=== PATIENT | male | born 1990 | race Caucasian/White ===

== ENCOUNTER 2017-08-05 10:16 | Day surgery (SDC) | payer BC ==
[~2017-08-05 10:16] MED LIST: Lactated Ringers 1,000 ML IV SCH; Sodium Chloride 0.9% 10 ML Syringe FLUSH PRN; Sodium Chloride 0.9% 2.5 ML Syringe FLUSH PRN; ceFAZolin 2 GM in Premix Bag 1 BAG IV ONE
[2017-08-05] MEDS ORDERED: Propofol 200 MG/20 ML SDV ONE (10:24)
[2017-08-05] MEDS ORDERED: fentaNYL 100 MCG/2 ML SDV ONE ×2 (10:24→13:58)
[2017-08-05] MEDS ORDERED: Midazolam 1 MG/ML 2 ML SDV ONE (10:24)
[2017-08-05] MEDS ORDERED: Lidocaine 2% 5 ML SDV ONE (10:26)
[2017-08-05] MEDS ORDERED: Glycopyrrolate 0.2 MG/ML SDV ONE (10:26)
[2017-08-05] MEDS ORDERED: Ondansetron 4 MG/2 ML SDV ONE (10:26)
[2017-08-05] MEDS ORDERED: Ketorolac 30 MG/ML SDV ONE (10:26)
--- NOTE | 2017-08-05 11:01 | PCM.PREANE ---
Preanesthetic Assessment - Anesthesia/Transfusion/Family Hx Anesthesia History: Prior Anesthesia Without Reaction Family History of Anesthesia Reaction: No Transfusion History: No Prior Transfusion(s) Intubation History: Unknown - Review of Systems General: No Symptoms Pulmonary: No Symptoms Cardiovascular: No Symptoms Gastrointestinal: No Symptoms Neurological: No Symptoms Other: Reports: None - Physical Assessment Height: 1.91 m Weight: 102.965 kg ASA Class: 2 Mental Status: Alert & Oriented x3 Airway Class: Mallampati = 2 Dentition: Reports: Normal Dentition Thyro-Mental Finger Breadths: 3 Mouth Opening Finger Breadths: 2 ROM/Head Extension: Full Lungs: Clear to Auscultation, Normal Respiratory Effort Cardiovascular: Regular Rate, Regular Rhythm - Allergies Allergies/Adverse Reactions: Allergies Allergy/AdvReac Type Severity Reaction Status Date / Time No Known Allergies Allergy Verified 08/04/17 08:36 - Blood Blood Available: No - Anesthesia Plan Pre-Op Medication Ordered: None - Acknowledgements Anesthesia Type Planned: General Anesthesia Pt an Appropriate Candidate for the Planned Anesthesia: Yes Alternatives and Risks of Anesthesia Discussed w Pt/Guardian: Yes Pt/Guardian Understands and Agrees with Anesthesia Plan: Yes PreAnesthesia Questionnaire HEENT History: Reports: None Musculoskeletal History: Reports: Back Pain, Chronic Oncologic (Cancer) History: Reports: 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 lip melanoma) - SUBSTANCE USE Smoking Status *Q: Never Smoker Tobacco Use Within Last Twelve Months: Snuff/Dip Recreational Drug Use History: No - HOME MEDS Home Medications: Home Meds . [No Known Home Meds] 08/04/17 [History] - CURRENT (IN HOUSE) MEDS Current Meds: Current Medications Lactated Ringer's (Ringers, Lactated) 1,000 mls @ 125 mls/hr IV ASDIRECTED CHANTAL Last Admin: 08/05/17 10:54 Dose: 125 mls/hr Sodium Chloride (Saline Flush) 10 ml FLUSH ASDIRECTED PRN PRN Reason: Keep Vein Open Sodium Chloride (Saline Flush) 2.5 ml FLUSH ASDIRECTED PRN PRN Reason: Keep Vein Open Discontinued Medications Fentanyl (Sublimaze) Confirm Administered Dose 100 mcg .ROUTE .STK-MED ONE Stop: 08/05/17 10:25 Glycopyrrolate (Robinul) Confirm Administered Dose 0.2 mg .ROUTE .STK-MED ONE Stop: 08/05/17 10:27 Cefazolin Sodium/Dextrose 2 gm (/ Premix) 50 mls @ 100 mls/hr IV ONETIME ONE Stop: 08/04/17 12:41 Ketorolac Tromethamine (Toradol) Confirm Administered Dose 30 mg .ROUTE .STK- MED ONE Stop: 08/05/17 10:27 Lidocaine (Xylocaine-Mpf 2%) Confirm Administered Dose 5 ml .ROUTE .STK-MED ONE Stop: 08/05/17 10:27 Midazolam HCl (Versed 1 Mg/Ml) Confirm Administered Dose 2 mg .ROUTE .STK-MED ONE Stop: 08/05/17 10:25 Ondansetron HCl (Zofran) Confirm Administered Dose 4 mg .ROUTE .STK-MED ONE Stop: 08/05/17 10:27 Propofol (Diprivan 20 Ml) Confirm Administered Dose 200 mg .ROUTE .STK-MED ONE Stop: 08/05/17 10:25
[2017-08-05] MEDS ORDERED: Bupivacaine 0.5% 10 ML SDV ONE (12:11)
[2017-08-05] MEDS ORDERED: ceFAZolin 1 GM Vial ONE ×2 (12:12→12:53)
[2017-08-05] MEDS ORDERED: Phenylephrine/Normal Saline 100 MCG/ML 10 ML Syringe ONE (12:39)
[2017-08-05] MEDS ORDERED: HYDROmorphone 2 MG/ML SDV IVPUSH PRN (13:55)
[2017-08-05] MEDS: fentaNYL 100 MCG/2 ML SDV IVPUSH PRN ×2 (14:00→14:05)
--- NOTE | 2017-08-05 14:19 | PCM.POSTAN ---
POST ANESTHESIA ASSESSMENT - MENTAL STATUS Mental Status: Alert, Oriented - RESPIRATORY Respiratory Status: Respiratory Rate WNL, Airway Patent, O2 Saturation Stable - CARDIOVASCULAR CV Status: Pulse Rate WNL, Blood Pressure Stable - GASTROINTESTINAL GI Status: No Symptoms - PAIN Pain Score: 3 - POST OP HYDRATION Hydration Status: Adequate & Stable - OBSERVATIONS Free Text/Narrative:: no anesthesia problems
--- NOTE | 2017-08-05 14:32 | PCM.OPNOTE ---
- General Post-Op/Procedure Note Date of Surgery/Procedure: 08/05/17 Operative Procedure(s): Left inguinal hernia repair Findings: Direct left inguinal hernia Pre Op Diagnosis: Direct left inguinal hernia Post-Op Diagnosis: same Anesthesia Technique: General LMA Primary Surgeon: Louise Fam Fluid Replacement, Intraop: 900 EBL in mLs: 20 Condition: Good Free Text/Narrative:: Intake & Output 08/04/17 08/05/17 08/05/17 22:59 06:59 14:59 Intake Total 1100 Balance 1100
--- NOTE | 2017-08-05 14:45 | PCM48HPAN ---
Post Anesthesia Note - EVALUATION WITHIN 48HRS OF ANESTHETIC Vital Signs in Normal Range: Yes Patient Participated in Evaluation: Yes Respiratory Function Stable: Yes Airway Patent: Yes Cardiovascular Function Stable: Yes Hydration Status Stable: Yes Pain Control Satisfactory: Yes Nausea and Vomiting Control Satisfactory: Yes Mental Status Recovered: Yes Resp Rate: 9
[2017-08-05] MEDS ORDERED: Acetaminophen/oxyCODONE 325-5 MG Tab PO ONE (15:08)
--- NOTE | 2017-08-05 18:16 | OR ---
SURGEON: ALHAJI PARK MD DATE OF PROCEDURE: 08/05/2017 PREOPERATIVE DIAGNOSIS: Left inguinal hernia. POSTOPERATIVE DIAGNOSIS: Left direct inguinal hernia. PROCEDURE PERFORMED: Left inguinal herniorrhaphy. ANESTHESIA: General LMA. FLUIDS: 900 mL of crystalloid. ESTIMATED BLOOD LOSS: 20 mL. FINDINGS: Left direct inguinal hernia. COMPLICATIONS: None. INDICATIONS: The patient is a 27-year-old male, who presented to clinic with a left groin bulge. On physical exam, a hernia was felt in the left groin. CT had been performed by his primary care physician that indicated the patient had a small left direct inguinal hernia. The patient and I discussed the laparoscopic and open approaches. The patient opted for an open approach. We discussed the procedure as well as expected perioperative course. We discussed the risks including bleeding, infection, or damage to surrounding structures. The patient verbalized understanding and wishes to proceed. PROCEDURE IN DETAIL: The patient was brought into the operating room and placed on the OR table in supine position. A time-out was completed verifying the patient's name, age, date of , allergies, and procedure to be performed. General LMA anesthesia was induced. The lower abdomen, groin, and genitalia were prepped and draped in normal sterile fashion. The left inguinal ligament was identified from the pubic tubercle to the ASIS. The skin was anesthetized with 0.5% Marcaine plain. Two fingerbreadths above the pubic tubercle, a transverse incision was made using a 15 blade scalpel. Dissection was then carried down with cautery through Franklin's fascia maintaining hemostasis. A large subcutaneous vein was noted. This was tied off with 0 Vicryl suture and incised sharply. Dissection was further carried down to the external oblique. The external oblique was incised along at the length of its fibers with a 15 blade scalpel. Metzenbaum scissors were then used to extend the incision in both directions opening up the external oblique down to the external ring. Next, the external oblique was grasped with hemostats on both sides. The cord and cord structures were then freed up circumferentially along the pubic tubercle, and a [place] drain was placed around it. The patient was noted to have a direct inguinal hernia sac along the floor of the inguinal canal. I carefully dissected along the cord structures and did not notice any indirect inguinal hernia. The direct hernia sac was easily reduced back into the abdomen. Attention was then made to placing a Prolene mesh to cover the floor. The mesh was sutured to the pubic tubercle medially along the ilioinguinal ligament inferiorly and along the conjoint tendon superiorly using interrupted 0 Ethibond sutures. The tails of the mesh were placed around the cord and cord structures. The tails of the mesh were secured to each other with just enough room to accept the tip of my finger and allow no strangulation of the cord and cord contents. The area was then irrigated and hemostasis ensured. The external oblique was then closed over the roof with a running 3-0 Vicryl suture taking care not to strangulate the cord and to recreate the external ring. The Franklin's fascia was then approximated with a running 3-0 Vicryl suture. The subcutaneous fat was then closed with interrupted 3-0 Vicryl sutures. The skin was closed with a running subcuticular 4-0 Monocryl suture. Steri-Strips and sterile dressings were applied. The patient tolerated the procedure well and was taken to PACU in stable condition. NORRIS GUSTAFSON /[id number]
== END 2017-08-05 15:15 | disposition home or self-care (01) ==
LOC: MW.SDS 10:16
PROVIDERS: ATTEND Surgery
DX: K40.90 Unilateral inguinal hernia, without obstruction or gangrene, not specified as recurrent (principal); F17.210 Nicotine dependence, cigarettes, uncomplicated; Z90.89 Acquired absence of other organs
CPT/HCPCS: 49505; A9270; C1781; J0690; J1885; J2250; J2405; J3010; J7120; J2704

== ENCOUNTER 2018-01-12 23:14 | Emergency (ER) | payer BC ==
--- NOTE | 2018-01-12 23:44 | EDM.PDOC ---
ED HPI GENERAL MEDICAL PROBLEM - General Chief Complaint: Behavioral/Psych Stated Complaint: MENTAL HEALTH Time Seen by Provider: 01/12/18 23:35 - History of Present Illness INITIAL COMMENTS - FREE TEXT/NARRATIVE: HISTORY AND PHYSICAL: History of present illness: Patient 27-year-old white male with history of post traumatic stress disorder who presents tonight in custody of law enforcement after he threatened suicide to his girlfriend on arrival here patient's awake polite cooperative he states he has been depressed and did have a plan to shoot himself. Review of systems: As per history of present illness and below otherwise all systems reviewed and negative. Past medical history: As per history of present illness and as reviewed below otherwise noncontributory. Surgical history: As per history of present illness and as reviewed below otherwise noncontributory. Social history: No reported history of drug or alcohol abuse. Family history: As per history of present illness and as reviewed below otherwise noncontributory. Physical exam: HEENT: Atraumatic, normocephalic, pupils reactive, negative for conjunctival pallor or scleral icterus, mucous membranes moist, throat clear, neck supple, nontender, trachea midline. Lungs: Clear to auscultation, breath sounds equal bilaterally, chest nontender. Heart: S1S2, regular, negative for clicks, rubs, or JVD. Abdomen: Soft, nondistended, nontender. Negative for masses or hepatosplenomegaly. Negative for costovertebral tenderness. Pelvis: Stable nontender. Genitourinary: Deferred. Rectal: Deferred. Extremities: Atraumatic, negative for cords or calf pain. Neurovascular unremarkable. Neuro: Awake, alert, oriented. Cranial nerves II through XII unremarkable. Cerebellum unremarkable. Motor and sensory unremarkable throughout. Exam nonfocal. Diagnostics: Psychiatric panel Therapeutics: None Impression: #1 depressive episode with suicidal ideation #2 history of posttraumatic stress disorder Definitive disposition and diagnosis as appropriate pending reevaluation and review of above. - Related Data Allergies Allergy/AdvReac Type Severity Reaction Status Date / Time No Known Allergies Allergy Verified 01/12/18 23:32 Home Meds: Home Meds . [No Known Home Meds] 08/04/17 [History] Past Medical History HEENT History: Reports: None Musculoskeletal History: Reports: Back Pain, Chronic Hematologic History: Reports: None Oncologic (Cancer) History: Reports: Malignant Melanoma - Infectious Disease History Infectious Disease History: Reports: None - Past Surgical History Head Surgeries/Procedures: Reports: None HEENT Surgical History: Reports: Tonsillectomy GI Surgical History: Reports: Hernia, Inguinal Dermatological Surgical History: Reports: Other (See Below) Social & Family History - Caffeine Use Caffeine Use: Reports: None - Alcohol Use Days Per Week of Alcohol Use: 3 Number of Drinks Per Day: 4 Total Drinks Per Week: 12 - Recreational Drug Use Recreational Drug Use: No ED ROS GENERAL - Review of Systems Review Of Systems: ROS reveals no pertinent complaints other than HPI. ED EXAM, GENERAL - Physical Exam Exam: See Below (See dictation) Course - Vital Signs Last Recorded V/S: Last Vital Signs Temp 36.2 C 01/12/18 23:29 Pulse 90 01/12/18 23:29 Resp 18 01/12/18 23:29 BP 137/98 H 01/12/18 23:29 Pulse Ox 92 L 01/12/18 23:29 - Orders/Labs/Meds Orders: Active Orders 24 hr Category Date Time Status EKG 12 Lead [EKG Documentation Completion] [RC] STAT Care 01/12/18 23:31 Active ACETAMINOPHEN [CHEM] Stat Lab 01/12/18 23:31 Ordered CBC WITH AUTO DIFF [HEME] Stat Lab 01/12/18 23:31 Ordered COMPREHENSIVE METABOLIC PN,CMP [CHEM] Stat Lab 01/12/18 23:31 Ordered DRUG SCREEN, URINE [URCHEM] Stat Lab 01/12/18 23:31 Ordered ETHANOL BLOOD MEDICAL [CHEM] Stat Lab 01/12/18 23:31 Ordered SALICYLATE [CHEM] Stat Lab 01/12/18 23:31 Ordered TSH [CHEM] Stat Lab 01/12/18 23:31 Ordered UA W/MICROSCOPIC [URIN] Stat Lab 01/12/18 23:31 Ordered Departure - Departure Time of Disposition: 23:44 Disposition: DC/Tfer to Psych Hosp/Unit 65 Condition: Good Clinical Impression: Depressive disorder - Discharge Information *PRESCRIPTION DRUG MONITORING PROGRAM REVIEWED*: Not Applicable *COPY OF PRESCRIPTION DRUG MONITORING REPORT IN PATIENT GEE: Not Applicable Referrals: PCP,None [Primary Care Provider] - - My Orders Last 24 Hours: My Active Orders 01/12/18 23:31 EKG 12 Lead [EKG Documentation Completion] [RC] STAT ACETAMINOPHEN [CHEM] Stat CBC WITH AUTO DIFF [HEME] Stat COMPREHENSIVE METABOLIC PN,CMP [CHEM] Stat DRUG SCREEN, URINE [URCHEM] Stat ETHANOL BLOOD MEDICAL [CHEM] Stat SALICYLATE [CHEM] Stat TSH [CHEM] Stat UA W/MICROSCOPIC [URIN] Stat - Assessment/Plan Last 24 Hours: My Active Orders 01/12/18 23:31 EKG 12 Lead [EKG Documentation Completion] [RC] STAT ACETAMINOPHEN [CHEM] Stat CBC WITH AUTO DIFF [HEME] Stat COMPREHENSIVE METABOLIC PN,CMP [CHEM] Stat DRUG SCREEN, URINE [URCHEM] Stat ETHANOL BLOOD MEDICAL [CHEM] Stat SALICYLATE [CHEM] Stat TSH [CHEM] Stat UA W/MICROSCOPIC [URIN] Stat
[2018-01-13] MEDS ORDERED: Haloperidol Lactate 5 MG/ML SDV IM ONE (00:21)
[2018-01-13] MEDS ORDERED: diphenhydrAMINE 50 MG/ML SDV IM ONE (00:25)
[2018-01-13 00:51] LABS: CHLORIDE,CL 107 mmol/L (98-107); SODIUM,NA 143 mmol/L (136-148)
[2018-01-13 00:52] LABS: ACETAMINOPHEN < 2.0 ug/mL
== END 2018-01-13 08:50 ==
LOC: MW.ED 23:14
DX: F32.9 Major depressive disorder, single episode, unspecified (principal); R45.851 Suicidal ideations
CPT/HCPCS: 36415; 80053; 80305; 81001; 84443; 85025; 93005; 96372; 99285; G0480; J1200; J1630

== ENCOUNTER 2021-03-06 18:23 | Emergency (ER) | payer SELFPAY ==
[2021-03-06] MEDS ORDERED: Sodium Chloride 0.9% 2.5 ML Syringe FLUSH PRN (20:03)
[2021-03-06] MEDS ORDERED: Sodium Chloride 0.9% 10 ML Syringe FLUSH PRN (20:03)
[2021-03-06] MEDS ORDERED: Lactated Ringers 1,000 ML IV ONE (20:03)
[2021-03-06] MEDS ORDERED: Ondansetron 4 MG/2 ML SDV IVPUSH ONE (20:03)
--- NOTE | 2021-03-06 20:11 | EDM.PDOC ---
ED HPI GENERAL MEDICAL PROBLEM - General Chief Complaint: General Stated Complaint: FLU SYMPTOMS Time Seen by Provider: 03/06/21 19:57 Source of Information: Reports: Patient History Limitations: Reports: No Limitations - History of Present Illness INITIAL COMMENTS - FREE TEXT/NARRATIVE: 30 yo M presents with nausea, vomiting and diarrhea. He has had subjective fevers and chills, cough and malaise and decreased appetite over the past 10 days, then started vomiting today with 4 episodes of nonbilious vomiting. He also had 4 days of watery diarrhea, averaging about 3 times per day. He notes mild diffuse abdominal cramping sensation. He was not vaccinated against Covid. He has been taking NyQuil with no relief. ROS: A 10-point review of systems, other than pertinent positives and negatives as stated per HPI, is otherwise negative Past medical history: No additional pertinent history Past Surgical history: No additional pertinent history Social history: No additional pertinent history Family history: No additional pertinent history PHYSICAL EXAM General: AOx4, GCS = 15, No distress HEENT: dry mucous membrane Neck: supple, no meningismus, no Kernig or Brudzinski Cardiac: S1S2 RRR Respiratory: CTAB, no crackles or rales, no wheezing Abdomen: Soft, nontender, no rebound or guarding, nondistended, no pulsatile mass. Back: nontender Musculoskeletal: NVI distally, no deformity Neuro: No focal deficits, CN 2 - 12 WNL. - Related Data Allergies Allergy/AdvReac Type Severity Reaction Status Date / Time No Known Allergies Allergy Verified 03/06/21 19:19 Home Meds: Home Meds Ondansetron [Zofran ODT] 4 mg PO Q6H PRN #12 tab.dis 03/06/21 [Rx] Past Medical History HEENT History: Reports: None Musculoskeletal History: Reports: Back Pain, Chronic Hematologic History: Reports: None Oncologic (Cancer) History: Reports: Malignant Melanoma - Infectious Disease History Infectious Disease History: Reports: None - Past Surgical History Head Surgeries/Procedures: Reports: None HEENT Surgical History: Reports: Tonsillectomy GI Surgical History: Reports: Hernia, Inguinal Dermatological Surgical History: Reports: Other (See Below) Social & Family History - Caffeine Use Caffeine Use: Reports: None - Recreational Drug Use Recreational Drug Use: No ED ROS GENERAL - Review of Systems Review Of Systems: See Below (see dictation) ED EXAM, GENERAL - Physical Exam Exam: See Below (see dictation) Course - Vital Signs Last Recorded V/S: Last Vital Signs Temp 97.2 F 03/06/21 19:19 Pulse 86 03/06/21 20:15 Resp 18 03/06/21 20:15 BP 115/70 03/06/21 20:15 Pulse Ox 94 L 03/06/21 20:15 - Orders/Labs/Meds Orders: Active Orders 24 hr Category Date Time Status COVID-19/FLU A+B [MOLEC] Stat Lab 03/06/21 20:06 Received Lactated Ringers [Ringers, Lactated] 1,000 ml Med 03/06/21 20:03 Active IV .BOLUS Sodium Chloride 0.9% [Saline Flush] Med 03/06/21 20:03 Active 10 ml FLUSH ASDIRECTED PRN Sodium Chloride 0.9% [Saline Flush] Med 03/06/21 20:03 Active 2.5 ml FLUSH ASDIRECTED PRN Saline Lock Insert [OM.PC] Stat Oth 03/06/21 20:04 Ordered Medication Orders Lactated Ringer's (Ringers, Lactated) 1,000 mls @ 999 mls/hr IV .BOLUS ONE Stop: 03/06/21 21:03 Last Admin: 03/06/21 20:11 Dose: 999 mls/hr Documented by: LUL Sodium Chloride (Sodium Chloride 0.9% 10 Ml Syringe) 10 ml FLUSH ASDIRECTED PRN PRN Reason: Keep Vein Open Last Admin: 03/06/21 20:11 Dose: 10 ml Documented by: LUL Sodium Chloride (Sodium Chloride 0.9% 2.5 Ml Syringe) 2.5 ml FLUSH ASDIRECTED PRN PRN Reason: Keep Vein Open Last Admin: 03/06/21 20:11 Dose: 2.5 ml Documented by: LUL Labs: Laboratory Tests 03/06/21 03/06/21 Range/Units 20:05 20:05 WBC 3.70 L (4.0-11.0) K/uL RBC 5.69 (4.50-5.90) M/uL Hgb 15.5 (13.0-17.0) g/dL Hct 44.9 (38.0-50.0) % MCV 78.9 L (80.0-98.0) fL MCH 27.2 (27.0-32.0) pg MCHC 34.5 (31.0-37.0) g/dL RDW Std Deviation 38.1 (28.0-62.0) fl RDW Coeff of Jed 13 (11.0-15.0) % Plt Count 177 (150-400) K/uL MPV 10.50 (7.40-12.00) fL Neut % (Auto) 72.7 (48.0-80.0) % Lymph % (Auto) 18.4 (16.0-40.0) % Hernando % (Auto) 8.6 (0.0-15.0) % Eos % (Auto) 0.3 (0.0-7.0) % Baso % (Auto) 0.0 (0.0-1.5) % Neut # (Auto) 2.7 (1.4-5.7) K/uL Lymph # (Auto) 0.7 (0.6-2.4) K/uL Hernando # (Auto) 0.3 (0.0-0.8) K/uL Eos # (Auto) 0.0 (0.0-0.7) K/uL Baso # (Auto) 0.0 (0.0-0.1) K/uL Nucleated RBC % 0.0 /100WBC Nucleated RBCs # 0 K/uL Sodium 139 (136-148) mmol/L Potassium 3.7 (3.5-5.1) mmol/L Chloride 101 (98-107) mmol/L Carbon Dioxide 24.6 (21.0-32.0) mmol/L BUN 18 (7.0-18.0) mg/dL Creatinine 1.3 (0.8-1.3) mg/dL Est Cr Clr Drug Dosing 100.21 mL/min Estimated GFR (MDRD) > 60.0 ml/min Glucose 106 (74-106) mg/dL Calcium 8.3 L (8.5-10.1) mg/dL Total Bilirubin 1.2 H (0.2-1.0) mg/dL AST 52 H (15-37) IU/L ALT 47 (14-63) IU/L Alkaline Phosphatase 69 (46-116) U/L Total Protein 7.7 (6.4-8.2) g/dL Albumin 3.8 (3.4-5.0) g/dL Globulin 3.9 (2.6-4.0) g/dL Albumin/Globulin Ratio 1.0 (0.9-1.6) Meds: Medications Generic Name Dose Route Start Last Admin Trade Name Freq PRN Reason Stop Dose Admin Lactated Ringer's 1,000 mls @ 999 mls/hr 03/06/21 20:03 03/06/21 20:11 Ringers, Lactated IV 03/06/21 21:03 999 mls/hr .BOLUS ONE Administration Sodium Chloride 10 ml 03/06/21 20:03 03/06/21 20:11 Sodium Chloride 0.9% 10 Ml Syringe FLUSH 10 ml ASDIRECTED PRN Administration Keep Vein Open Sodium Chloride 2.5 ml 03/06/21 20:03 03/06/21 20:11 Sodium Chloride 0.9% 2.5 Ml Syringe FLUSH 2.5 ml ASDIRECTED PRN Administration Keep Vein Open Discontinued Medications Generic Name Dose Route Start Last Admin Trade Name Freq PRN Reason Stop Dose Admin Ondansetron HCl 4 mg 03/06/21 20:03 03/06/21 20:13 Ondansetron 4 Mg/2 Ml Sdv IVPUSH 03/06/21 20:04 4 mg ONETIME ONE Administration - Re-Assessments/Exams Free Text/Narrative Re-Assessment/Exam: 03/06/21 20:58 After IV fluids and Zofran in the ER, the patient improved and is currently stable for discharge. I performed a repeat exam and did not appreciate new abnormal findings. Patient exhibits normal vital signs and has a normal gait on road test. I advised the patient to return to the ER for reevaluation if symptoms worsened, including fever, worsening pain, or any other worrisome symptoms. I instructed the patient to follow up with their PCP within 2-3 days. MEDICAL DECISION MAKING: I reviewed the patients past medical records, lab and radiographic findings. I discussed the case with the patient. My differential diagnosis included: Covid, viral gastroenteritis. He is tested positive for Covid. Electrolytes unremarkable. He feels improved after IV fluids and Zofran. He was evaluated for the symptoms described in the history of present illness. They were evaluated in the context of the global COVID-19 pandemic, which necessitated consideration that the patient might be at risk for infection with the SARS-CoV-2 virus that causes COVID-19. Institutional protocols and algorithms that pertain to the evaluation of patients at risk for COVID-19 are in a state of rapid change based on information released by regulatory bodies including the CDC and federal and state organizations. These policies and algorithms were followed during the patient's care. I wore full PPE, N95, face shield, gown and gloves throughout my evaluation and care of this patient. I recommended home isolation. given home isolation instructions. He is well appearing, not in respiratory distress, not hypoxic, no tachyneia, no retractions. I instructed patient to return immediately for worsening symptoms, sob, chest pain, lightheadedness or other concerns. Patient voiced understanding and questions answered. Departure - Departure Time of Disposition: 20:59 Disposition: Home, Self-Care 01 Condition: Good Clinical Impression: COVID-19, Vomiting, Diarrhea - Discharge Information *PRESCRIPTION DRUG MONITORING PROGRAM REVIEWED*: Not Applicable *COPY OF PRESCRIPTION DRUG MONITORING REPORT IN PATIENT GEE: Not Applicable Prescriptions: Ondansetron [Zofran ODT] 4 mg PO Q6H PRN #12 tab.dis PRN Reason: Vomiting Instructions: COVID-19 Vaccine Information, Nausea and Vomiting, Adult, What You Should Know About COVID-19 to Protect Yourself and Others - CDC, How to Wear and Take Off Your Mask - [facility] (07/20/2020), Food Choices to Help Relieve Diarrhea, Adult Referrals: Ap Lerner MD [Primary Care Provider] - 3 Days Forms: ED Department Discharge Additional Instructions: You have Covid. Please practice social distancing and wear your mask The need for follow-up, as well as the timing and circumstances, are variable depending upon the specifics of your emergency department visit. If you don't have a primary care physician on staff, we will provide you with a referral. We always advise you to contact your personal physician following an emergency department visit to inform them of the circumstance of the visit and for follow-up with them and/or the need for any referrals to a consulting specialist. The emergency department will also refer you to a specialist when appropriate. This referral assures that you have the opportunity for follow-up care with a specialist. All of these measure are taken in an effort to provide you with optimal care, which includes your follow-up. Under all circumstances we always encourage you to contact your private physician who remains a resource for coordinating your care. When calling for follow-up care, please make the office aware that this follow-up is from your recent emergency room visit. If for any reason you are refused follow-up, please contact the [facility] Emergency Department at and asked to speak to the emergency department charge nurse. If you do not have a primary care doctor, please follow up with the clinics below within 3-5 days. [facility] - Primary Care [address] [place] [id number] [address] Sepsis Event Note (ED) - Evaluation Sepsis Screening Result: No Definite Risk - Focused Exam Vital Signs: Vital Signs Temp Pulse Resp BP Pulse Ox 03/06/21 20:15 86 18 115/70 94 L 03/06/21 19:19 97.2 F 95 16 124/73 94 L - My Orders Last 24 Hours: My Active Orders 03/06/21 20:03 Lactated Ringers [Ringers, Lactated] 1,000 ml IV .BOLUS Sodium Chloride 0.9% [Saline Flush] 10 ml FLUSH ASDIRECTED PRN Sodium Chloride 0.9% [Saline Flush] 2.5 ml FLUSH ASDIRECTED PRN 03/06/21 20:04 Saline Lock Insert [OM.PC] Stat 03/06/21 20:06 COVID-19/FLU A+B [MOLEC] Stat - Assessment/Plan Last 24 Hours: My Active Orders 03/06/21 20:03 Lactated Ringers [Ringers, Lactated] 1,000 ml IV .BOLUS Sodium Chloride 0.9% [Saline Flush] 10 ml FLUSH ASDIRECTED PRN Sodium Chloride 0.9% [Saline Flush] 2.5 ml FLUSH ASDIRECTED PRN 03/06/21 20:04 Saline Lock Insert [OM.PC] Stat 03/06/21 20:06 COVID-19/FLU A+B [MOLEC] Stat
[2021-03-06 20:34] LABS: BLOOD UREA NITROGEN,BUN 18 mg/dL (7.0-18.0); CARBON DIOXIDE,CO2 24.6 mmol/L (21.0-32.0); CHLORIDE,CL 101 mmol/L (98-107); GLUCOSE RANDOM 106 mg/dL (74-106); POTASSIUM,K 3.7 mmol/L (3.5-5.1); SODIUM,NA 139 mmol/L (136-148)
[2021-03-06 20:55] LABS: CORONAVIRUS COVID-19 NAA POSITIVE (NEGATIVE); INFLUENZA A NAA NEGATIVE (NEGATIVE); INFLUENZA B NAA NEGATIVE (NEGATIVE)
== END 2021-03-06 21:12 | disposition home or self-care (01) ==
LOC: MW.ED 18:23
DX: R11.2 Nausea with vomiting, unspecified (principal); U07.1 COVID-19; R19.7 Diarrhea, unspecified
CPT/HCPCS: 0240U; 36415; 80053; 85025; 96374; 99284; J2405; J7120

== ENCOUNTER 2024-08-04 19:23 | Emergency (ER) | payer SELFPAY ==
[2024-08-04] MEDS ORDERED: Sodium Chloride 0.9% 10 ML Syringe FLUSH PRN (20:00)
[2024-08-04] MEDS ORDERED: Sodium Chloride 0.9% 20 ML SDV IV PRN (20:00)
[2024-08-04] MEDS ORDERED: Sodium Chloride 0.9% 2.5 ML Syringe FLUSH PRN (20:00)
[2024-08-04] MEDS: Metoclopramide 10 MG/2 ML SDV IM ONE (20:28)
[2024-08-04] MEDS: Ketorolac 30 MG/ML SDV IVPUSH ONE (20:30)
[2024-08-04] MEDS: Sodium Chloride 0.9% 1,000 ML IV ONE (20:30)
[2024-08-04] MEDS: Metoclopramide 10 MG/2 ML SDV IVPUSH ONE (20:32)
[2024-08-04] MEDS: diphenhydrAMINE 50 MG/ML SDV IVPUSH ONE (20:37)
== END 2024-08-04 22:33 | disposition home or self-care (01) ==
LOC: MW.ED 19:23
DX: G43.909 Migraine, unspecified, not intractable, without status migrainosus (principal); Z79.899 Other long term (current) drug therapy
CPT/HCPCS: 96361; 96374; 96375; 99283; J1200; J1885; J2765; J7030